=== PATIENT | female | born 1965 | race African-American/Black ===

== ENCOUNTER 2018-11-26 17:36 | Emergency (ER) | payer MEDICAID ==
[~2018-11-26] VITALS: Ht 165.1 cm; Wt 76.2 kg
[2018-11-26 17:47] VITALS: BP 126/85
== END 2018-11-26 21:24 | disposition left against medical advice (07) ==
LOC: ER 17:36
DX: M54.5 Low back pain (principal); Z53.21 Procedure and treatment not carried out due to patient leaving prior to being seen by health care provider